=== PATIENT | female | born 1945 | race Caucasian/White ===

== ENCOUNTER → 2023-06-28 15:46 | Outpatient (REF) | payer MEDICARE, OTHER, SELFPAY ==
[2023-06-28 17:20] LABS: ALT (SGPT) 43 U/L (0-35); AST (SGOT) 40 U/L (14-36); Albumin 4.9 g/dl (3.5-5.0); Alkaline Phosphatase 93 U/L (38-126); Blood Urea Nitrogen 16 mg/dl (7-17); Calcium 10.6 mg/dl (8.4-10.2); Carbon Dioxide 26 mmol/L (22-30); Chloride 99 mmol/L (98-107); Direct Bilirubin 0.4 mg/dl (0.0-0.4); Glucose 87 mg/dl (70-99); Potassium 4.1 mmol/L (3.5-5.1); Sodium 136 mmol/L (135-145); Total Bilirubin 0.9 mg/dl (0.2-1.3); Total Protein 7.5 g/dl (6.3-8.2); eGFR > 60.00
[2023-06-28 17:34] LABS: Vitamin D, 25-OH*** 53.2 ng/mL (30-80)
[2023-06-28 17:48] LABS: TSH Reflex To Free T4 1.19 uIU/ml (0.47-4.68)
== END ==
LOC: REG 15:46
PROVIDERS: ATTENDING PHYSICIAN Internal Medicine Rheumatology; FAMILY PHYSICIAN Nurse Practitioner Adult Health; REFERRING PHYSICIAN Internal Medicine Gastroenterology
DX: E55.9 Vitamin D deficiency, unspecified (principal); M81.0 Age-related osteoporosis without current pathological fracture; Z51.81 Encounter for therapeutic drug level monitoring; R74.8 Abnormal levels of other serum enzymes; Z79.899 Other long term (current) drug therapy
CPT/HCPCS: 36415; 80053; 82248; 82306; 84443

== ENCOUNTER → 2023-07-14 12:37 | Outpatient (REF) | payer MEDICARE, OTHER, SELFPAY | LOC: WOUND 12:37 | PROVIDERS: ATTENDING PHYSICIAN Surgery; FAMILY PHYSICIAN Nurse Practitioner Adult Health | DX: S80.822A Blister (nonthermal), left lower leg, initial encounter (principal); F41.9 Anxiety disorder, unspecified; I89.0 Lymphedema, not elsewhere classified; W22.8XXA Striking against or struck by other objects, initial encounter | CPT/HCPCS: 10140; 99203 ==

== ENCOUNTER → 2023-07-21 14:17 | Outpatient (REF) | payer MEDICARE, OTHER, SELFPAY | LOC: WOUND 14:17 | PROVIDERS: ATTENDING PHYSICIAN Surgery; FAMILY PHYSICIAN Nurse Practitioner Adult Health | DX: L97.822 Non-pressure chronic ulcer of other part of left lower leg with fat layer exposed (principal); S80.222A Blister (nonthermal), left knee, initial encounter; F41.9 Anxiety disorder, unspecified; I89.0 Lymphedema, not elsewhere classified; X58.XXXA Exposure to other specified factors, initial encounter | CPT/HCPCS: 11042 ==

== ENCOUNTER → 2023-08-04 14:34 | Outpatient (REF) | payer MEDICARE, OTHER, SELFPAY | LOC: WOUND 14:34 | PROVIDERS: ATTENDING PHYSICIAN Surgery; FAMILY PHYSICIAN Nurse Practitioner Adult Health | DX: L97.822 Non-pressure chronic ulcer of other part of left lower leg with fat layer exposed (principal); S80.822A Blister (nonthermal), left lower leg, initial encounter; F41.9 Anxiety disorder, unspecified; I89.0 Lymphedema, not elsewhere classified; X58.XXXA Exposure to other specified factors, initial encounter | CPT/HCPCS: 11042 ==

== ENCOUNTER → 2023-08-18 14:16 | Outpatient (REF) | payer MEDICARE, OTHER, SELFPAY | LOC: WOUND 14:16 | PROVIDERS: ATTENDING PHYSICIAN Surgery; FAMILY PHYSICIAN Nurse Practitioner Adult Health | DX: L97.822 Non-pressure chronic ulcer of other part of left lower leg with fat layer exposed (principal); S80.822A Blister (nonthermal), left lower leg, initial encounter; I89.0 Lymphedema, not elsewhere classified; F41.9 Anxiety disorder, unspecified; X58.XXXA Exposure to other specified factors, initial encounter | CPT/HCPCS: 11042 ==

== ENCOUNTER → 2023-09-08 14:27 | Outpatient (REF) | payer MEDICARE, OTHER, SELFPAY | LOC: WOUND 14:27 | PROVIDERS: ATTENDING PHYSICIAN Surgery; FAMILY PHYSICIAN Nurse Practitioner Adult Health | DX: L97.822 Non-pressure chronic ulcer of other part of left lower leg with fat layer exposed (principal); S80.822A Blister (nonthermal), left lower leg, initial encounter; I89.0 Lymphedema, not elsewhere classified; F41.9 Anxiety disorder, unspecified; X58.XXXA Exposure to other specified factors, initial encounter | CPT/HCPCS: 99213 ==

== ENCOUNTER → 2023-09-22 14:15 | Outpatient (REF) | payer MEDICARE, OTHER, SELFPAY | LOC: WOUND 14:15 | PROVIDERS: ATTENDING PHYSICIAN Surgery; FAMILY PHYSICIAN Nurse Practitioner Adult Health | DX: L97.822 Non-pressure chronic ulcer of other part of left lower leg with fat layer exposed (principal); S80.822A Blister (nonthermal), left lower leg, initial encounter; F41.9 Anxiety disorder, unspecified; I89.0 Lymphedema, not elsewhere classified; X58.XXXA Exposure to other specified factors, initial encounter | CPT/HCPCS: 99212 ==

== ENCOUNTER → 2023-11-09 13:29 | Outpatient (REF) | payer MEDICARE, OTHER, SELFPAY | LOC: RAD 13:29 | PROVIDERS: ATTENDING PHYSICIAN Internal Medicine Rheumatology; FAMILY PHYSICIAN Family Medicine | DX: M54.50 Low back pain, unspecified (principal) | CPT/HCPCS: 72110 ==

== ENCOUNTER → 2023-12-01 15:13 | Outpatient (REF) | payer MEDICARE, OTHER, SELFPAY | LOC: RAD 15:13 | PROVIDERS: ATTENDING PHYSICIAN Internal Medicine Critical Care Medicine; FAMILY PHYSICIAN Nurse Practitioner Adult Health | DX: R05.3 Chronic cough (principal) | CPT/HCPCS: 71046 ==

== ENCOUNTER → 2023-12-08 11:58 | Outpatient (REF) | payer MEDICARE, OTHER, SELFPAY ==
[2023-12-08 13:06] LABS: % Basophils 0.6 % (0-2); % Eosinophils 2.7 % (0-6); % Immature Granulocytes 1.7 % (0-0.5); % Lymphocytes 40.5 % (20.5-51.1); % Monocytes 8.7 % (1.7-9.3); % Neutrophils 45.8 % (42.2-75.2); Absolute Basophils 0.1 10^3/uL (0-0.2); Absolute Eosinophils 0.2 10^3/uL (0-0.7); Absolute Immature Granulocytes 0.1 10^3/uL (0-0.05); Absolute Lymphocytes 3.4 10^3/uL (1.2-3.4); Absolute Monocytes 0.7 10^3/uL (0.1-0.6); Absolute Neutrophils 3.8 10^3/uL (1.4-6.5); Hematocrit 41.8 % (37.0-47.0); Hemoglobin 14.4 g/dL (12.0-16.0); Mean Corp Hgb Conc. 34.4 g/dL (33.0-37.0); Mean Corpuscular Hgb 27.5 pg (27.0-31.0); Mean Corpuscular Volume 79.8 fL (81.0-99.0); Mean Platelet Volume 9.4 fL (7.4-10.4); Nucleated Red Blood Cells % 0 %; Platelet Count 227 10^3/uL (130-400); Red Blood Cell Count 5.24 10^6/uL (4.20-5.40); Red Cell Dist. Width 14.6 % (11.5-14.5); White Blood Cell Count 8.3 10^3/uL (4.8-10.8)
[2023-12-08 13:47] LABS: ALT (SGPT) 44 U/L (0-35); AST (SGOT) 33 U/L (14-36); Albumin 4.8 g/dl (3.5-5.0); Alkaline Phosphatase 44 U/L (38-126); Blood Urea Nitrogen 16 mg/dl (7-17); Carbon Dioxide 27 mmol/L (22-30); Chloride 103 mmol/L (98-107); Glucose 109 mg/dl (70-99); HDL Cholesterol 97 mg/dl; LDL Cholesterol, Calculated 137 mg/dl; Potassium 4.5 mmol/L (3.5-5.1); Sodium 143 mmol/L (135-145); Total Bilirubin 0.9 mg/dl (0.2-1.3); Total Cholesterol 267 mg/dl (50-199); Total Protein 7.4 g/dl (6.3-8.2); Triglyceride 166 mg/dl (10-149); Very Low Density Lipoprotein 33 mg/dl (0-30); eGFR > 60.00
[2023-12-08 13:50] LABS: Urine Albumin Negative (Neg - Trace); Urine Bilirubin Negative (Negative); Urine Character Clear (Clear); Urine Color Yellow; Urine Glucose Negative (Negative); Urine Ketone Negative (Negative); Urine Leukocyte Trace (Negative); Urine Nitrite Negative (Negative); Urine Occult Blood Negative (Negative); Urine Urobilinogen Negative (Neg - 1+)
[2023-12-08 14:17] LABS: Urine Bacteria Many (Negative); Urine Squamous Cell 16-20 /LPF (Few)
[2023-12-08 14:18] LABS: Urine Red Blood Cell 0-2 /HPF (0-2)
== END ==
LOC: REG 11:58
PROVIDERS: ATTENDING PHYSICIAN Family Medicine; REFERRING PHYSICIAN Internal Medicine Cardiovascular Disease
DX: E78.2 Mixed hyperlipidemia (principal); R35.0 Frequency of micturition; R53.83 Other fatigue
CPT/HCPCS: 36415; 80053; 80061; 81003; 81015; 84443; 85025

== ENCOUNTER → 2024-01-26 12:26 | Outpatient (REF) | payer MEDICARE, OTHER, SELFPAY | LOC: HWRAD 12:26 | PROVIDERS: ATTENDING PHYSICIAN Internal Medicine Rheumatology; FAMILY PHYSICIAN Nurse Practitioner Adult Health | DX: M81.0 Age-related osteoporosis without current pathological fracture (principal) | CPT/HCPCS: 77080 ==

== ENCOUNTER 2024-02-21 02:54 | Emergency (ER) | payer MEDICARE, OTHER, SELFPAY ==
[2024-02-21 02:59] VITALS: BP 171/73
[2024-02-21] MEDS: PERCOCET 5/325 1 TABLET PO (04:11)
--- NOTE | 2024-02-21 04:12 | ED.SKININJ ---
HPI-Injury
<BRANDEN Chery - Last Filed: 02/21/24 04:19>
General
Chief Complaint: Skin Surface Trauma
Source: patient and significant other
Exam Limitations: none
Time Seen by Provider: 02/21/24 03:33
Nursing documentation reviewed up to this point in time: agreed with
History of Present Illness-Injury
Initial Injury comments:
Pt is a 79 yo F w/ PMH of non-diabetic peripheral neuropathy who presents with skin tear to lower R leg due to her cane falling. Pt states it was bleeding copiously at home and her wrapped it and then brought her here. Pt has had two prior
injuries to the L lower leg due to trauma. She follows with wound care. She states she has had her tetanus shot within the past 2 years. Pt denies fever, falls, trauma to the head, chest pain, SOB, dizziness, numbness or tingling.
Past History
<BRANDEN Chery - Last Filed: 02/21/24 04:19>
Past History
ED Past Medical History: Asthma, Cancer (Breast), GERD, Hypercholesterolemia and Other (UTI, Neuropathy)
ED Past Surgical History: Appendectomy, Cholecystectomy, Gynecological (Hysterectomy) and Orthopedic (Bilateral knee replacements.)
Social History
Tobacco: Non-smoker
Alcohol: Occasional
Personal:
Living: with family
Review of Systems
<BRANDEN Chery - Last Filed: 02/21/24 04:19>
Review of Systems
Allergies reviewed?: Yes
Other source history: family
Constitutional: Denies fever or chills
Respiratory: Denies cough or trouble breathing
Cardiac: Denies chest pain
ABD/GI: Denies abdominal pain, nausea or vomiting
Neurological: Denies dizzy, weakness or numbness
Skin Exam
<BRANDEN Chery - Last Filed: 02/21/24 04:19>
Laceration
Right Lower Anterior Leg:
Length in cm: 4
Type of Laceration: simple
Any active bleeding?: no active bleeding
Distal skin color and temperature: normal-warm & good color
Normal distal neurovascular exam: Yes
Range of motion: full
Phy Exam
<BRANDEN Chery - Last Filed: 02/21/24 04:19>
General Physical Exam
General Presentation: well appearing and no apparent distress
General age: appears stated age
General Skin: warm and dry
General Habitus: normal and elderly
General Mental: alert
Cardiovascular Exam
Cardiovascular Exam: regular rate/rhythm
Pulmonary Exam
Pulmonary Exam: lungs clear and no respiratory distress
Neurological Exam
Neurological Exam: alert, oriented x3, no motor deficits, no sensory deficits and speech normal
Course
<BRANDEN Chery - Last Filed: 02/21/24 04:19>
Orders/Labs/Results
Orders:
Orders
02/21/24 04:04
Oxycodone/Acetaminophen [Percocet 5/325] 1 tablet PO NOW STA
Vital Signs
Initial and Last Documented VS:
Initial Vital Signs
Temp Pulse Resp BP Pulse Ox
98.3 F 72 20 171/73 100
02/21/24 02:59 02/21/24 02:59 02/21/24 02:59 02/21/24 02:59 02/21/24 02:59
Last Documented Vital Signs
Temp Pulse Resp BP Pulse Ox
98.3 F 72 20 171/73 100
02/21/24 02:59 02/21/24 02:59 02/21/24 02:59 02/21/24 02:59 02/21/24 02:59
<Reginaldo Irizarry DO - Last Filed: 02/21/24 04:30>
Orders/Labs/Results
Orders:
Orders
02/21/24 04:04
Oxycodone/Acetaminophen [Percocet 5/325] 1 tablet PO NOW STA
Vital Signs
Initial and Last Documented VS:
Initial Vital Signs
Temp Pulse Resp BP Pulse Ox
98.3 F 72 20 171/73 100
02/21/24 02:59 02/21/24 02:59 02/21/24 02:59 02/21/24 02:59 02/21/24 02:59
Last Documented Vital Signs
Temp Pulse Resp BP Pulse Ox
98.3 F 72 20 17173 100
02/21/24 02:59 02/21/24 02:59 02/21/24 02:59 02/21/24 02:59 02/21/24 02:59
<BRANDEN Chery - Last Filed: 02/21/24 04:19>
*Critical Care Note
Total Time (30-74mins, 75-104mins- exclusive of procedures): Not Applicable
ED Attending Note
<BRANDEN Chery - Last Filed: 02/21/24 04:19>
-
Portions of this chart may have been created with voice recognition software.� Occasional wrong word or��sound alike� substitutions may have occurred due to the inherent limitations of voice recognition software.
<Reginaldo Irizarry DO - Last Filed: 02/21/24 04:30>
ED Attending Note
Patient seen and examined by attending physician: Yes
I performed the substantive portion of visit, reviewed & personally made and approve the management plan that is documented in note by myself or RADHA.: Yes
ED Attending Note:
Pleasant 79-year-old female presents with skin tear to the right lower leg. She states she was walking in the kitchen and her cane dropped hitting her lower leg. She states he was bleeding profusely at home. wrapped it and applied direct
pressure. Upon arrival bleeding had stopped. There is a good-sized skin tear. Patient follows with wound care. Tetanus is up-to-date. Patient was seen in conjunction with the PA student. I have reviewed and agree with the history and treatment
plan presented. On my independent physical exam, patient is awake, alert, and oriented x3 minimal acute distress. No respiratory distress. Skin tear is a triangular flap approximately 3 cm on each side. Poor vascular in the flap.
Skin was thoroughly cleaned. Flap was reapproximated and Prineo Dermabond mesh was applied. Patient tolerated procedure well. She did receive pain medication. Patient will follow-up with wound care as directed. No tetanus shot needed at this
time.
Discharge Plan
Departure
Patient Disposition: Home (Routine Discharge)
Date of Disposition: 02/21/24
Time of Disposition: 04:26
Patient with high blood pressure during this ER visit?: Yes
Condition: Good
Discharge Problem:
Skin tear
Instructions: Laceration Repair With Glue (DC), Wound Care (DC), BLOOD PRESSURE
Prescriptions:
No Action
albuterol sulfate [Ventolin HFA] 90 MCG/PUFF HFA aerosol inhaler
1 puff inhalation PRN PRN (Reason: sob)
budesonide-formoterol [Symbicort] 1 PUFF HFA aerosol inhaler
2 puff inhalation R BID
cholecalciferol (vitamin D3) 2,000 UNITS tablet
2,000 units PO DAILY
PROLIA:
1 dose SC [id number]
Patient Comments:
pt does not know dosage
clonazepam 1 mg Tablet
0.5 mg PO HS
amitriptyline 10 mg Tablet
20 mg PO HS
fluorometholone 0.1 % Drops,Suspension
1 drp OPHTHALMIC (EYE) DAILY
omeprazole 20 mg Capsule,Delayed Release(Dr/Ec)
20 mg PO .DAILY BEFORE MEAL
magnesium 250 mg Tablet
250 mg PO DAILY
ascorbic acid (vitamin C) [Vitamin C] 125 mg Tablet,Chewable
500 mg PO DAILY
Patient Comments:
takes the gummies
aspirin 81 mg Capsule
81 mg PO HS
Co Q-10
10 ml PO .DAILY W/ MEAL
Patient Comments:
luiquid
Fiber Choice Tablet,Chewable
2 tab PO PRN PRN (Reason: constipation)
Multivitamin Women 50 Plus 8 mg iron-400 mcg-300 mcg Tablet
2 tab PO DAILY
prednisone 20 mg tablet
40 mg PO DAILY Qty: 8 0RF
azithromycin [Zithromax] 250 mg tablet
250 mg PO DAILY Qty: 6 0RF
Rx Instructions:
Two tabs day 1, one tab days 2-5
Referrals:
Lane Hernandez DO [Family Provider] -
Activity Restrictions/Additional Instructions:
It was a pleasure meeting you and taking part in your care. We hope for your continued healing and wellness.
Please read discharge instructions in their entirety. However, they are for general education and may not describe your exact diagnosis at discharge. Information on your ER visit and medical conditions were discussed with you along with appropriate
follow up information...
If indicated, please take your medications as instructed and indicated on discharge paperwork.
Please schedule a follow up appointment as directed. Call to schedule an appointment
Please return to the emergency department with ANY change in, persisting, or worsening of symptoms. If any of your symptoms do not improve, or persist, or become more severe within 6-12 hours, please return to the emergency department for further
care.
Please return to the emergency department if you develop a headache, neck pain/stiffness, fever greater than 100.4F, chest pain, shortness of breath, persistent nausea, vomiting, slurred speech, difficulty walking, numbness/tingling, weakness, signs
of infection or any other symptoms that are worrisome to you.
If you have any questions or concerns please do not hesitate to call the Hospital at or E-mail me directly at [email or web address]
Interventions
Interventions:
*Risk Screen - Suicide Last Done: 02/21/24 04:03
*Neglect/Abuse Screening Last Done: 02/21/24 04:03
ED- Fall Risk Assessment Last Done: 02/21/24 03:51
*ED COVID-19 Vaccine History Last Done: 02/21/24 02:59
ED-Skin Assessment Last Done: 02/21/24 03:51
Discharge Date and Time
Print Language: GERMAN
[2024-02-21 04:41] VITALS: BP 132/65
== END 2024-02-21 04:53 | disposition home or self-care (01) ==
LOC: EMR 02:54
PROVIDERS: EMERGENCY PHYSICIAN Student in an Organized Health Care Education/Training Program; FAMILY PHYSICIAN Family Medicine
DX: S81.811A Laceration without foreign body, right lower leg, initial encounter (principal); W22.8XXA Striking against or struck by other objects, initial encounter; R03.0 Elevated blood-pressure reading, without diagnosis of hypertension
CPT/HCPCS: 99283; 12002

== ENCOUNTER → 2024-03-15 15:20 | Outpatient (REF) | payer MEDICARE, OTHER, SELFPAY ==
[2024-03-15 16:33] LABS: % Basophils 0.5 % (0-2); % Eosinophils 2.6 % (0-6); % Immature Granulocytes 0.5 % (0-0.5); % Monocytes 8.2 % (1.7-9.3); % Neutrophils 48.2 % (42.2-75.2); Absolute Eosinophils 0.2 10^3/uL (0-0.7); Absolute Lymphocytes 3.1 10^3/uL (1.2-3.4); Absolute Monocytes 0.6 10^3/uL (0.1-0.6); Absolute Neutrophils 3.8 10^3/uL (1.4-6.5); Hematocrit 38.9 % (37.0-47.0); Hemoglobin 13.8 g/dL (12.0-16.0); Mean Corp Hgb Conc. 35.5 g/dL (33.0-37.0); Mean Corpuscular Volume 81.7 fL (81.0-99.0); Mean Platelet Volume 9.2 fL (7.4-10.4); Nucleated Red Blood Cells % 0 %; Platelet Count 233 10^3/uL (130-400); Red Blood Cell Count 4.76 10^6/uL (4.20-5.40); Red Cell Dist. Width 13.5 % (11.5-14.5); White Blood Cell Count 7.8 10^3/uL (4.8-10.8)
[2024-03-15 16:34] LABS: Carbon Dioxide 24 mmol/L (22-30); Chloride 102 mmol/L (98-107); Total Protein 6.9 g/dl (6.3-8.2); eGFR > 60.00
[2024-03-15 16:42] LABS: ALT (SGPT) 29 U/L (0-35); AST (SGOT) 27 U/L (14-36); Albumin 4.5 g/dl (3.5-5.0); Alkaline Phosphatase 50 U/L (38-126); Blood Urea Nitrogen 12 mg/dl (7-17); Calcium 9.3 mg/dl (8.4-10.2); Glucose 115 mg/dl (70-99)
[2024-03-15 16:51] LABS: Potassium 3.8 mmol/L (3.5-5.1); Sodium 138 mmol/L (135-145)
[2024-03-15 16:52] LABS: Vitamin D, 25-OH*** 41.4 ng/mL (30-80)
[2024-03-16 10:19] LABS: Intact PTH 75.2 pg/ml (13.6-85.8)
== END ==
LOC: REG 15:20
PROVIDERS: ATTENDING PHYSICIAN Internal Medicine Rheumatology; FAMILY PHYSICIAN Family Medicine
DX: E55.9 Vitamin D deficiency, unspecified (principal); M81.0 Age-related osteoporosis without current pathological fracture; Z51.81 Encounter for therapeutic drug level monitoring
CPT/HCPCS: 36415; 80053; 82306; 83970; 85025; 86140

== ENCOUNTER → 2024-04-30 12:22 | Outpatient (REF) | payer MEDICARE, OTHER, SELFPAY ==
[2024-04-30 16:11] LABS: ALT (SGPT) 36 U/L (0-35); AST (SGOT) 30 U/L (14-36); Albumin 4.8 g/dl (3.5-5.0); Alkaline Phosphatase 53 U/L (38-126); Blood Urea Nitrogen 18 mg/dl (7-17); Calcium 9.7 mg/dl (8.4-10.2); Carbon Dioxide 27 mmol/L (22-30); Chloride 99 mmol/L (98-107); Glucose 107 mg/dl (70-99); HDL Cholesterol 80 mg/dl; LDL Cholesterol, Calculated 141 mg/dl; Potassium 4.1 mmol/L (3.5-5.1); Sodium 135 mmol/L (135-145); Total Bilirubin 1.1 mg/dl (0.2-1.3); Total Cholesterol 245 mg/dl (50-199); Triglyceride 120 mg/dl (10-149); Very Low Density Lipoprotein 24 mg/dl (0-30); eGFR > 60.00
[2024-05-01 09:41] LABS: Glycohemoglobin (HgbA1c) 6.6 % (4.0-5.6)
== END ==
LOC: HWLAB 12:22
PROVIDERS: ATTENDING PHYSICIAN Nurse Practitioner; FAMILY PHYSICIAN Family Medicine
DX: E78.5 Hyperlipidemia, unspecified (principal); F41.9 Anxiety disorder, unspecified
CPT/HCPCS: 36415; 80053; 80061; 83036

== ENCOUNTER → 2024-05-03 14:09 | Outpatient (REF) | payer MEDICARE, OTHER, SELFPAY ==
[2024-05-03 15:52] LABS: % Basophils 0.7 % (0-2); % Eosinophils 2.6 % (0-6); % Immature Granulocytes 1.9 % (0-0.5); % Lymphocytes 28.5 % (20.5-51.1); % Monocytes 9.6 % (1.7-9.3); % Neutrophils 56.7 % (42.2-75.2); Absolute Basophils 0.1 10^3/uL (0-0.2); Absolute Eosinophils 0.2 10^3/uL (0-0.7); Absolute Immature Granulocytes 0.2 10^3/uL (0-0.05); Absolute Lymphocytes 2.4 10^3/uL (1.2-3.4); Absolute Monocytes 0.8 10^3/uL (0.1-0.6); Absolute Neutrophils 4.7 10^3/uL (1.4-6.5); Hematocrit 39.7 % (37.0-47.0); Hemoglobin 13.3 g/dL (12.0-16.0); Mean Corp Hgb Conc. 33.5 g/dL (33.0-37.0); Mean Corpuscular Hgb 28.1 pg (27.0-31.0); Mean Corpuscular Volume 83.9 fL (81.0-99.0); Mean Platelet Volume 9.3 fL (7.4-10.4); Nucleated Red Blood Cells % 0 %; Platelet Count 216 10^3/uL (130-400); Red Blood Cell Count 4.73 10^6/uL (4.20-5.40); Red Cell Dist. Width 14.3 % (11.5-14.5); White Blood Cell Count 8.3 10^3/uL (4.8-10.8)
[2024-05-03 16:03] LABS: Erythrocyte Sed Rate 19 mm/hour (0-20)
[2024-05-03 16:17] LABS: ALT (SGPT) 30 U/L (0-35); AST (SGOT) 27 U/L (14-36); Albumin 4.3 g/dl (3.5-5.0); Alkaline Phosphatase 54 U/L (38-126); Blood Urea Nitrogen 17 mg/dl (7-17); Calcium 9.5 mg/dl (8.4-10.2); Carbon Dioxide 24 mmol/L (22-30); Chloride 102 mmol/L (98-107); Glucose 102 mg/dl (70-99); Sodium 136 mmol/L (135-145); Total Bilirubin 0.6 mg/dl (0.2-1.3); Total Protein 6.8 g/dl (6.3-8.2); Uric Acid 4.1 mg/dl (2.5-6.2); eGFR > 60.00
== END ==
LOC: REG 14:09
PROVIDERS: ATTENDING PHYSICIAN Podiatrist Foot & Ankle Surgery
DX: L03.116 Cellulitis of left lower limb (principal)
CPT/HCPCS: 36415; 73590; 73610; 73630; 80053; 84550; 85025; 85652; 86140

== ENCOUNTER 2024-05-15 01:51 | Emergency (ER) | payer MEDICARE, OTHER, SELFPAY ==
[2024-05-15 01:54] VITALS: BP 146/114
--- NOTE | 2024-05-15 02:17 | ED.GENMED ---
History of Present Illness
General
Chief Complaint: Medication Reaction
Source: patient
Exam Limitations: none
Time Seen by Provider: 05/15/24 02:04
Nursing documentation reviewed up to this point in time: agreed with
History of Present Illness
History of Present Illness:
79-year-old female came to the emergency department and hysterics screaming saying that she cannot breathe. She has been on doxycycline and Levaquin for over a week for lower extremity 'cellulitis'. 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
having an allergic reaction to penicillin. She is only on doxycycline and Levaquin so her primary care provider told her that now she was allergic to those to those medications. Patient states that her PCP offered her oral Benadryl but she decided
that she needed a shot so she came to the emergency department. She arrived crying and screaming that 'she could not breathe '.
Past History
Past History
ED Past Medical History: Asthma, Cancer (Breast), GERD, Hypercholesterolemia and Other (UTI, Neuropathy)
ED Past Surgical History: Appendectomy, Cholecystectomy, Gynecological (Hysterectomy) and Orthopedic (Bilateral knee replacements.)
Social History
Tobacco: Non-smoker
Alcohol: Occasional
Personal:
Living: with family
Review of Systems
Review of Systems
Allergies reviewed?: Yes
All Other Systems: ROS reviewed and negative except as documented in HPI and ROS
ABD/GI: Reports no symptoms
Psychiatric: Reports anxiety
Phy Exam
Physical Exam
Physical Exam:
Physical Exam
Vital signs and allergy list reviewed and agreed with.
GENERAL: Alert , in moderate psychiatric apparent distress at time of initial exam. Subsequent exams patient was relaxed
EYE: pupils equal, EOMI, anicteric
NECK: Supple, no significant adenopathy. No masses. Trachea midline
ENT: Oropharynx is clear, mmm.
CARDIAC: Regular rate and rhythm . No M/R/G
LUNGS: Clear breath sounds bilaterally, no acute respiratory distress, no wheezes/rales/rhonchi
ABDOMEN: Soft, without focal tenderness, no r/g, no cvat. Normal BSx4q
NEUROLOGICAL: Alert and oriented, no focal neuro deficits
SKIN: Warm and dry, skin intact. Slight erythema around the neckline. Possibly urticaria
MUSCULOSKELETAL: No edema, well perfused. Moves all 4 extremities
PSYCH: Normal and appropriate interaction.
Course
Orders/Labs/Results
Orders:
Orders
05/15/24 02:17
Dexamethasone Sod Phosphate [Decadron] 10 mg IM NOW STA
Diphenhydramine [Benadryl] 25 mg IM NOW STA
Vital Signs
Initial and Last Documented VS:
Initial Vital Signs
Temp Pulse Resp BP Pulse Ox
97.8 F 104 30 146/114 96
05/15/24 01:54 05/15/24 01:54 05/15/24 01:54 05/15/24 01:54 05/15/24 01:54
Last Documented Vital Signs
Temp Pulse Resp BP Pulse Ox
97.8 F 67 20 146/67 98
05/15/24 01:54 05/15/24 03:33 05/15/24 03:33 05/15/24 03:33 05/15/24 03:33
*Critical Care Note
Total Time (30-74mins, 75-104mins- exclusive of procedures): Not Applicable
Update Note
Update Note:
79-year-old female with a panic attack. Patient concerned because her cousin 2 weeks ago and now she feels anxious. She admitted this after she started to calm down from her initial anxiety. I do feel that there is a medication reaction
going on. She did show great improvement with steroid and Benadryl. She currently wishes to be discharged.
ED Attending Note
-
Portions of this chart may have been created with voice recognition software.� Occasional wrong word or��sound alike� substitutions may have occurred due to the inherent limitations of voice recognition software.
Discharge Plan
Departure
Patient Disposition: Home (Routine Discharge)
Date of Disposition: 05/15/24
Time of Disposition: 03:57
Patient with high blood pressure during this ER visit?: Yes
Condition: Good
Discharge Problem:
Medication reaction
Prescriptions:
New
epinephrine [EpiPen 2-Jose F] 0.3 mg/0.3 mL auto-injector
0.3 mg IM Q5-15M PRN (Reason: hypersensitivity reaction) Qty: 2 0RF
diphenhydramine HCl [Benadryl] 25 mg capsule
25 mg PO TID PRN (Reason: allergy symptoms) Qty: 14 0RF
prednisone 50 mg tablet
50 mg PO DAILY Qty: 4 0RF
No Action
albuterol sulfate [Ventolin HFA] 90 MCG/PUFF HFA aerosol inhaler
1 puff inhalation PRN PRN (Reason: sob)
budesonide-formoterol [Symbicort] 1 PUFF HFA aerosol inhaler
2 puff inhalation R BID
cholecalciferol (vitamin D3) 2,000 UNITS tablet
2,000 units PO DAILY
PROLIA:
1 dose SC .[id number]
Patient Comments:
pt does not know dosage
clonazepam 1 mg Tablet
0.5 mg PO HS
amitriptyline 10 mg Tablet
20 mg PO HS
fluorometholone 0.1 % Drops,Suspension
1 drp OPHTHALMIC (EYE) DAILY
omeprazole 20 mg Capsule,Delayed Release(Dr/Ec)
20 mg PO .DAILY BEFORE MEAL
magnesium 250 mg Tablet
250 mg PO DAILY
ascorbic acid (vitamin C) [Vitamin C] 125 mg Tablet,Chewable
500 mg PO DAILY
Patient Comments:
takes the gummies
aspirin 81 mg Capsule
81 mg PO HS
Co Q-10
10 ml PO .DAILY W/ MEAL
Patient Comments:
luiquid
Fiber Choice Tablet,Chewable
2 tab PO PRN PRN (Reason: constipation)
Multivitamin Women 50 Plus 8 mg iron-400 mcg-300 mcg Tablet
2 tab PO DAILY
prednisone 20 mg tablet
40 mg PO DAILY Qty: 8 0RF
azithromycin [Zithromax] 250 mg tablet
250 mg PO DAILY Qty: 6 0RF
Rx Instructions:
Two tabs day 1, one tab days 2-5
oxycodone-acetaminophen [Percocet] 5-325 mg tablet
1 tab PO Q6HPRN PRN (Reason: pain) Qty: 5 0RF
Referrals:
UNKNOWN - PT DOES,NOT KNOW [Family Provider] -
Activity Restrictions/Additional Instructions:
It was a pleasure meeting you and taking part in your care. We hope for your continued healing and wellness.
Please read discharge instructions in their entirety. However, they are for general education and may not describe your exact diagnosis at discharge. Information on your ER visit and medical conditions were discussed with you along with appropriate
follow up information...
If indicated, please take your medications as instructed and indicated on discharge paperwork.
Please schedule a follow up appointment as directed. Call to schedule an appointment
Please return to the emergency department with ANY change in, persisting, or worsening of symptoms. If any of your symptoms do not improve, or persist, or become more severe within 6-12 hours, please return to the emergency department for further
care.
Please return to the emergency department if you develop a headache, neck pain/stiffness, fever greater than 100.4F, chest pain, shortness of breath, persistent nausea, vomiting, slurred speech, difficulty walking, numbness/tingling, weakness, signs
of infection or any other symptoms that are worrisome to you.
If you have any questions or concerns please do not hesitate to call the Hospital at or E-mail me directly at [email or web address]
Interventions
Interventions:
*Risk Screen - Suicide Last Done: 05/15/24 01:54
*General Assessment Last Done: 05/15/24 02:45
*Neglect/Abuse Screening Last Done: 05/15/24 01:54
*ED- Fall Risk Assessment Last Done: 05/15/24 02:45
*ED COVID-19 Vaccine History Last Done: 05/15/24 02:45
ED-Skin Assessment Last Done: 05/15/24 02:45
ED- Pulmonary Assessment Last Done: 05/15/24 02:18
ED-EENT Assessment Last Done: 05/15/24 02:45
Discharge Date and Time
Print Language: TURKISH
[2024-05-15] MEDS: BENADRYL 25 MG IM (02:22)
[2024-05-15] MEDS: DECADRON 10 MG IM (02:23)
[2024-05-15 03:24] VITALS: BMI 33.8
[2024-05-15 03:33] VITALS: BP 146/67
[2024-05-15] MEDS: BENADRYL 25 MG PO (04:09)
== END 2024-05-15 04:35 | disposition home or self-care (01) ==
LOC: EMR 01:51
PROVIDERS: EMERGENCY PHYSICIAN Student in an Organized Health Care Education/Training Program
DX: T50.905A Adverse effect of unspecified drugs, medicaments and biological substances, initial encounter (principal); Y92.9 Unspecified place or not applicable; J45.909 Unspecified asthma, uncomplicated; K21.9 Gastro-esophageal reflux disease without esophagitis; E78.00 Pure hypercholesterolemia, unspecified; Z85.3 Personal history of malignant neoplasm of breast; Z87.440 Personal history of urinary (tract) infections; Z90.49 Acquired absence of other specified parts of digestive tract; Z90.710 Acquired absence of both cervix and uterus; Z96.653 Presence of artificial knee joint, bilateral
CPT/HCPCS: 99282; 96372

== ENCOUNTER → 2024-06-17 13:14 | Outpatient (REF) | payer MEDICARE, OTHER, SELFPAY | LOC: HWRAD 13:14 | PROVIDERS: ATTENDING PHYSICIAN Podiatrist Foot & Ankle Surgery; FAMILY PHYSICIAN Family Medicine | DX: I87.2 Venous insufficiency (chronic) (peripheral) (principal) | CPT/HCPCS: 93970 ==

== ENCOUNTER → 2024-08-14 15:53 | Outpatient (REF) | payer MEDICARE, OTHER, SELFPAY | LOC: HWRAD 15:53 | PROVIDERS: ATTENDING PHYSICIAN Internal Medicine Rheumatology; FAMILY PHYSICIAN Family Medicine | DX: M19.012 Primary osteoarthritis, left shoulder (principal) | CPT/HCPCS: 73030 ==